=== PATIENT | female | born 1985 | race American Indian/Alaskan Native ===

== ENCOUNTER 2019-09-27 02:06 | Emergency (ER) | payer MEDICAID ==
[2019-09-27 02:16] VITALS: BP 97/69
[2019-09-27 03:06] LABS: Basophils % (Auto) 0.1 % (0.0-1.8); Eosinophils # (Auto) 0.1 K/mm3 (0.0-0.4); Eosinophils % (Auto) 0.7 % (0.0-4.3); Hematocrit 32.7 % (30.3-42.9); Lymphocytes % (Auto) 28.3 % (13.4-35.0); Mean Corpuscular HGB Conc 34 % (30-34); Mean Corpuscular Volume 83 fl (79-97); Monocytes # (Auto) 0.6 K/mm3 (0.0-0.8); Monocytes % (Auto) 5.8 % (0.0-7.3); Platelet Count 351 K/mm3 (140-440); Red Blood Count 3.93 M/mm3 (3.65-5.03); Red Cell Distribution Width 15.4 % (13.2-15.2)
--- NOTE | 2019-09-27 04:13 | Ultrasound Report ---
ULTRASOUND OBSTETRIC INDICATION: vaginal bleeding. Clinical Gestational Age (GA): 17 weeks, 6 days TECHNIQUE: Transabdominal and Transvaginal. COMPARISON: None available. FINDINGS: There is a single intrauterine . Biparietal Diameter = 3.93 cm = 18 weeks, 0 day(s). Head Circumference = 16.49 cm = 19 weeks, 1 day(s). Abdominal Circumference = 13.76 cm = 19 weeks, 1 day(s). Femur Length = 2.5 cm = 17 weeks, 4 day(s). Average Ultrasound Age (AUA) = 18 weeks, 3 day(s). Heart Rate: 152 beats per minute. Position: cephalic. Cervix: closed. Length in cm (if measured): 4 Placenta: anterior and free of the os. Amniotic Fluid Volume: normal Maternal Adnexa: No significant abnormality. IMPRESSION: 1. Single, living intrauterine with estimated sonographic age of 18 weeks, 3 day(s). 2. No significant sonographic abnormality. Signer Name: Abraham Blevins MD Signed: 09/27/2019 4:09 AM Workstation Name: [id number]
[2019-09-27] MEDS ORDERED: ACETAMINOPHEN NICU 32 MG/ML ORAL LIQD PO ONE (05:40)
[2019-09-27] MEDS ORDERED: ACETAMINOPHEN 325 MG/10.15 ML ORAL LIQD UNIT DOSE ONE (05:59)
[2019-09-27] MEDS ORDERED: ACETAMINOPHEN 325 MG/10.15 ML ORAL LIQD UNIT DOSE PO ONE (06:00)
--- NOTE | 2019-09-27 06:26 | Emergency Department Report ---
ED HPI - General Chief complaint: Vaginal Bleeding Stated complaint: 17WKS /BLEEDING Source: patient Mode of arrival: Ambulatory Limitations: No Limitations - History of Present Illness Initial comments: Ms. Serrano is a 33 y/o aaf who presents for vaginal spotting and cramping x 1 day, pt is 17 weeks , with hx of fibroids, G4, p3, A0 all c sections. There is no bleeding at this time, no dysuria frequency or urgency. MD Complaint: abdominal pain, vaginal bleeding Onset/Timin -: days(s) Location: abdomen Radiation: suprapubic Severity: moderate Severity scale (0 -10): 3 Quality: cramping Consistency: intermittent Improves with: none Worsens with: none Associated symptoms: vaginal bleeding, abdominal pain. denies: nausea/vomiting, dysuria, headache, vision changes, malaise, dysparuenia, shortness of breath, syncope, weakness Vaginal bleeding: light :: Yes Number of weeks : 17 OB History - Current : no complications OB History - Previous Pregnancies: no complications, other (C Section ) Last menstrual period: 05/21/19 Pre-stephanie care: followed by OB - Related Data : 4 Para: 3 Ab: 0 Previous Rx's Medication Instructions Recorded Last Taken Type HYDROcodone/APAP 5-325 [[place] 1 each PO Q6HR PRN #16 tablet 01/15/15 Unknown Rx 5/325] Sulfamethoxazole/Trimethoprim 1 each PO Q12H #20 tablet 01/15/15 Unknown Rx [Bactrim Ds] Acetaminophen [Tylenol] 650 mg PO QID PRN #30 capsule 09/27/19 Unknown Rx Allergies Allergy/AdvReac Type Severity Reaction Status Date / Time No Known Allergies Allergy Verified 01/15/15 18:19 ED Review of Systems ROS: Stated complaint: 17WKS /BLEEDING Other details as noted in HPI Constitutional: denies: chills, fever Eyes: denies: eye pain, eye discharge, vision change ENT: denies: ear pain, throat pain Respiratory: denies: cough, shortness of breath, wheezing Cardiovascular: denies: chest pain, palpitations Endocrine: no symptoms reported Gastrointestinal: abdominal pain. denies: nausea, vomiting, diarrhea Genitourinary: as per HPI, abnormal menses, other (vaignal spotting ). denies: dysuria, frequency, hematuria, discharge Musculoskeletal: denies: back pain, joint swelling, arthralgia Skin: denies: rash, lesions Neurological: denies: headache, weakness, paresthesias Psychiatric: denies: anxiety, depression Hematological/Lymphatic: denies: easy bleeding, easy bruising ED Past Medical Hx - Surgical History Additional Surgical History: csection x 3 - Social History Smoking Status: Never Smoker Substance Use Type: None - Medications Home Medications: Home Medications Medication Instructions Recorded Confirmed Last Taken Type HYDROcodone/APAP 5-325 [[place] 1 each PO Q6HR PRN #16 tablet 01/15/15 Unknown Rx 5/325] Sulfamethoxazole/Trimethoprim 1 each PO Q12H #20 tablet 01/15/15 Unknown Rx [Bactrim Ds] Acetaminophen [Tylenol] 650 mg PO QID PRN #30 capsule 09/27/19 Unknown Rx ED Physical Exam - General Limitations: No Limitations General appearance: alert, in no apparent distress - Head Head exam: Present: atraumatic, normocephalic - Eye Eye exam: Present: normal appearance, PERRL, EOMI - ENT ENT exam: Present: mucous membranes moist - Neck Neck exam: Present: normal inspection, full ROM - Respiratory Respiratory exam: Present: normal lung sounds bilaterally. Absent: respiratory distress, wheezes, rales, rhonchi, stridor, chest wall tenderness - Cardiovascular Cardiovascular Exam: Present: regular rate, normal rhythm, normal heart sounds. Absent: systolic murmur, diastolic murmur, rubs, gallop - GI/Abdominal GI/Abdominal exam: Present: soft, normal bowel sounds. Absent: distended, tenderness, guarding, rebound, rigid, bruit, hernia - Rectal Rectal exam: Present: deferred - External exam: Present: other (deferred by patient ) - Extremities Exam Extremities exam: Present: normal inspection, full ROM, normal capillary refill. Absent: tenderness, pedal edema, calf tenderness - Back Exam Back exam: Present: normal inspection, full ROM. Absent: tenderness, CVA tenderness (R), CVA tenderness (L), rash noted - Neurological Exam Neurological exam: Present: alert, oriented X3, CN II-XII intact, normal gait - Psychiatric Psychiatric exam: Present: normal affect, normal mood - Skin Skin exam: Present: warm, dry, intact, normal color. Absent: rash ED Course Vital Signs 09/27/19 02:12 Temperature 98.3 F Pulse Rate 105 H Respiratory 18 Rate Blood Pressure 97/69 O2 Sat by Pulse 100 Oximetry ED Medical Decision Making - Lab Data Result diagrams: 09/27/19 02:28 Labs 09/27/19 09/27/19 09/27/19 02:28 02:28 02:28 WBC 10.8 RBC 3.93 Hgb 11.0 Hct 32.7 MCV 83 MCH 28 MCHC 34 RDW 15.4 H Plt Count 351 Lymph % (Auto) 28.3 [place] % (Auto) 5.8 Eos % (Auto) 0.7 Baso % (Auto) 0.1 Lymph # 3.0 [place] # 0.6 Eos # 0.1 Baso # 0.0 Seg Neutrophils % 65.1 Seg Neutrophils # 7.0 HCG, Quant 9504 H Blood Type A POSITIVE - Radiology Data Radiology results: report reviewed, image reviewed Ordering Physician: ED MD SHANDA Date of Service: 09/27/19 Procedure(s): US transvaginal Accession Number(s): [id number] cc: ED MD SHANDA ULTRASOUND OBSTETRIC INDICATION: vaginal bleeding. Clinical Gestational Age (GA): 17 weeks, 6 days TECHNIQUE: Transabdominal and Transvaginal. COMPARISON: None available. FINDINGS: There is a single intrauterine . Biparietal Diameter = 3.93 cm = 18 weeks, 0 day(s). Head Circumference = 16.49 cm = 19 weeks, 1 day(s). Abdominal Circumference = 13.76 cm = 19 weeks, 1 day(s). Femur Length = 2.5 cm = 17 weeks, 4 day(s). Average Ultrasound Age (AUA) = 18 weeks, 3 day(s). Heart Rate: 152 beats per minute. Position: cephalic. Cervix: closed. Length in cm (if measured): 4 Placenta: anterior and free of the os. Amniotic Fluid Volume: normal Maternal Adnexa: No significant abnormality. IMPRESSION: 1. Single, living intrauterine with estimated sonographic age of 18 weeks, 3 day(s). 2. No significant sonographic abnormality. Signer Name: Abraham Blevins MD Signed: 09/27/2019 4:09 AM Workstation Name: [id number] Transcribed By: MICHAEL Dictated By: Abraham Blevins MD Electronically Authenticated By: Abraham Blevins MD Signed Date/Time: 09/27/19408 DD/ 4 TD/TT: - Medical Decision Making us ob: very viable Single IUP 18 weeks and 3 days FHR 152 bpm, pt advises she must leave now, ua; pending, however there is no vaginal bleeding at this time, pt has confirmed uterine fibroids, h/h is normal, blood type O pos, pt has good obgyn follow up with [facility] will follow up with same in 1-2 days, pt dc'd in stable condition at this time. Critical care attestation.: If time is entered above; I have spent that time in minutes in the direct care of this critically ill patient, excluding procedure time. ED Disposition Clinical Impression: Abdominal pain during in second trimester, Vaginal bleeding before 22 weeks gestation Disposition: DC- TO HOME OR SELFCARE Is pt being admited?: No Does the pt Need Aspirin: No Condition: Stable Instructions: Abdominal Pain in (ED) Prescriptions: Acetaminophen [Tylenol] 650 mg PO QID PRN #30 capsule PRN Reason: pain Referrals: [facility] [Provider Group] - 2-3 Days Forms: Work/School Release Form(ED) Time of Disposition: 06:39
== END 2019-09-27 07:11 | disposition home or self-care (01) ==
LOC: ED 02:06
DX: O26.892 Other specified pregnancy related conditions, second trimester (principal); R10.9 Unspecified abdominal pain; O46.8X2 Other antepartum hemorrhage, second trimester; Z3A.17 17 weeks gestation of pregnancy; Z98.890 Other specified postprocedural states; Z79.899 Other long term (current) drug therapy
CPT/HCPCS: 36415; 76805; 76810; 76817; 76830; 84702; 85025; 86900; 86901

== ENCOUNTER 2019-11-10 22:37 | Emergency (ER) | payer MEDICAID ==
[2019-11-10] MEDS ORDERED: ONDANSETRON 4 MG ODT TAB PO ONE (22:52)
[2019-11-10] MEDS ORDERED: ACETAMINOPHEN 500 MG TAB PO ONE (22:52)
[2019-11-10 23:22] LABS: Hematocrit 30.7 % (30.3-42.9); Mean Corpuscular HGB Conc 33 % (30-34); Mean Corpuscular Volume 81 fl (79-97); Platelet Count 373 K/mm3 (140-440); Red Blood Count 3.78 M/mm3 (3.65-5.03); Red Cell Distribution Width 15.3 % (13.2-15.2)
[2019-11-10 23:43] LABS: Albumin 3.6 g/dL (3.9-5); BUN/Creatinine Ratio 25; Blood Urea Nitrogen 10 mg/dL (7-17); Calcium 9.4 mg/dL (8.4-10.2); Hemolysis Index 4
[2019-11-10 23:57] LABS: Alanine Aminotransferase < 5 units/L (7-56)
[2019-11-11 01:04] LABS: Bilirubin,Urine NEG (Negative); Blood,Urine NEG (Negative); Color,Urine Amber (Yellow); Mucus,Urine 3+ /HPF
[2019-11-11] MEDS ORDERED: SODIUM CHLORIDE 0.9% 1000 ML 1,000 ML IV ONE (01:32)
[2019-11-11] MEDS ORDERED: METOCLOPRAMIDE 10 MG/2 ML INJ IV STA (01:32)
[2019-11-11] MEDS ORDERED: diphenhydrAMINE 50 MG/ML VIAL IV STA (01:32)
--- NOTE | 2019-11-11 01:43 | Emergency Department Report ---
ED Headache HPI - General Chief Complaint: Headache Stated Complaint: SANCHEZ Time Seen by Provider: 11/11/19 01:31 - History of Present Illness Timing/Duration: 24 hours Quality: mild, moderate Head Injury Location: frontal, parietal Recent Head Trauma: no recent headache/trauma Modifying Factors: improves with: cold therapy Associated Symptoms: denies: confusion, fatigue, fever/chills, loss of consciousness, nasal congestion, nasal drainage, seizures, sinus infection, stiff neck, vision changes Allergies/Adverse Reactions: Allergies No Known Allergies Allergy (Verified 01/15/15 18:19) Home Medications: Ambulatory Orders HYDROcodone/APAP 5-325 [[place] 5/325] 1 each PO Q6HR PRN #16 tablet 01/15/15 Sulfamethoxazole/Trimethoprim [Bactrim Ds] 1 each PO Q12H #20 tablet 01/15/15 Acetaminophen [Tylenol] 650 mg PO QID PRN #30 capsule 09/27/19 ED Review of Systems ROS: Stated complaint: SANCHEZ Other details as noted in HPI Comment: All other systems reviewed and negative ED Past Medical Hx - Past Medical History Previous Medical History?: No - Surgical History Past Surgical History?: Yes Additional Surgical History: csection x 3 - Social History Smoking Status: Never Smoker Substance Use Type: None - Medications Home Medications: Home Medications Medication Instructions Recorded Confirmed Last Taken Type HYDROcodone/APAP 5-325 [[place] 1 each PO Q6HR PRN #16 tablet 01/15/15 Unknown Rx 5/325] Sulfamethoxazole/Trimethoprim 1 each PO Q12H #20 tablet 01/15/15 Unknown Rx [Bactrim Ds] Acetaminophen [Tylenol] 650 mg PO QID PRN #30 capsule 09/27/19 Unknown Rx ED Physical Exam - General Limitations: No Limitations General appearance: alert, in no apparent distress - Head Head exam: Present: atraumatic, normocephalic - Eye Eye exam: Present: normal appearance, PERRL, EOMI. Absent: scleral icterus, conjunctival injection, nystagmus (neg fundus exam) Pupils: Present: normal accommodation - ENT ENT exam: Present: normal exam, normal orophraynx, mucous membranes moist, TM's normal bilaterally - Neck Neck exam: Present: normal inspection, full ROM - Respiratory Respiratory exam: Present: normal lung sounds bilaterally. Absent: respiratory distress - Cardiovascular Cardiovascular Exam: Present: regular rate, normal rhythm. Absent: systolic murmur, diastolic murmur, rubs, gallop - GI/Abdominal GI/Abdominal exam: Present: soft, normal bowel sounds. Absent: tenderness, guarding, hyperactive bowel sounds, hypoactive bowel sounds, organomegaly - Extremities Exam Extremities exam: Present: normal inspection - Back Exam Back exam: Present: normal inspection - Neurological Exam Neurological exam: Present: alert, oriented X3, CN II-XII intact, normal gait - Psychiatric Psychiatric exam: Present: normal affect, normal mood - Skin Skin exam: Present: warm, dry, intact, normal color. Absent: rash ED Course Vital Signs 11/10/19 11/11/19 22:49 00:05 Temperature 98.9 F Pulse Rate 99 H Respiratory 18 16 Rate Blood Pressure 93/65 O2 Sat by Pulse 100 Oximetry ED Medical Decision Making - Lab Data Result diagrams: 11/10/19 23:02 11/10/19 23:02 - Medical Decision Making This patient presents with a headache most consistent with migraine. Differential diagnosis includes migraine versus tension type headache. No headache red flags. Neurologic exam without evidence of meningismus, focal neurologic findings. Presentation not consistent with acute intracranial bleed to include SAH (lack of risk factors, headache history). Presentation not consistent with acute [employer] [place] infection to include meningitis or brain abscess, Temporal arteritis unlikely, as is acute angle closure glaucoma given history and physical findings. Presentation not consistent with other acute, emergent causes of headache at this time. Plan to treat symptomatically with pain medica tion. No indication for imaging/LP at this time. Symptoms have resolved includes Reglan and Benadryl the patient also responded well to Tylenol. Spies patient importance of following up with an [facility] Plan: pain medication, serial reassessment Critical care attestation.: If time is entered above; I have spent that time in minutes in the direct care of this critically ill patient, excluding procedure time. ED Disposition Clinical Impression: Cephalgia Disposition: -01 TO HOME OR SELFCARE Is pt being admited?: No Does the pt Need Aspirin: No Condition: Stable Instructions: Acute Headache (ED) Referrals: PRIMARY CARE, [Primary Care Provider] - 3-5 Days
[2019-11-11 04:04] VITALS: BP 110/64
== END 2019-11-11 04:05 | disposition home or self-care (01) ==
LOC: ED 22:37
DX: R51 Headache (principal); Z98.890 Other specified postprocedural states; Z79.899 Other long term (current) drug therapy
CPT/HCPCS: 36415; 80053; 81001; 85027; 87086; 96374; 96375; 99283; J1200; J2765; J7030; Q0162

== ENCOUNTER 2020-01-25 00:38 | Observation (INO) | payer MEDICAID ==
[2020-01-25] MEDS ORDERED: LACTATED RINGERS 1,000 ML IV ONE (01:07)
[2020-01-25] MEDS ORDERED: metroNIDAZOLE 500 MG TAB PO ONE (02:10)
[2020-01-25 02:15] LABS: Bacteria,Urine 2+ /HPF (Negative); Bilirubin,Urine NEG (Negative); Blood,Urine SM (Negative); Color,Urine Yellow (Yellow); Protein,Urine <15 mg/dL mg/dL (Negative)
[2020-01-25] MEDS ORDERED: TERBUTALINE 1 MG/1 ML INJ SUB-Q ONE ×2 (02:27→05:42)
[2020-01-25] MEDS ORDERED: TERBUTALINE 1 MG/1 ML INJ ONE ×2 (02:30→07:49)
[2020-01-25 04:38] LABS: Bilirubin,Urine NEG (Negative); Blood,Urine NEG (Negative); Color,Urine Yellow (Yellow); Hyaline Casts,Urine 1 /LPF; Mucus,Urine FEW /HPF; Protein,Urine <15 mg/dL mg/dL (Negative)
[2020-01-25 04:53] LABS: Amphetamine Screen,Urine PRESUMPTIVE NEGATIVE; Benzodiazepines Screen,Urine PRESUMPTIVE NEGATIVE; Cannabinoid Screen,Urine PRESUMPTIVE NEGATIVE; Cocaine Screen,Urine PRESUMPTIVE NEGATIVE; Methadone Screen,Urine PRESUMPTIVE NEGATIVE; Opiate Screen,Urine PRESUMPTIVE NEGATIVE
[2020-01-25] MEDS ORDERED: ACETAMINOPHEN 325 MG TAB PO PRN (06:17)
[2020-01-25] MEDS ORDERED: DOCUSATE SODIUM 100 MG CAP PO PRN (06:17)
--- NOTE | 2020-01-25 06:26 | History and Physical Report ---
History of Present Illness Date of examination: 01/25/20 Date of admission: 01/25/2020 Chief complaint: Contractions History of present illness: 34 year old female presents with complaint of irregular contractions for past day. Patient denies vaginal bleeding or leaking of fluid. Patient reports active movement. Patient receives care at [facility] and records are available. LMP 05/23/2019. EDC 02/27/2020. significant for the following: AMA, anemia (supplemented with iron), anterior fibroid, history of section times 3, LGA, marginal placenta previa (resolved), overweight, trichomonas and mycoplasma, elevated 1 hour sugar test. labs are as follows: A+, antibody screen negative, rubella immune, pap smear negative, hepatitis B surface antigen negative, HIV negative, RPR nonreactive, gonorrhea negative, chlamydia negative, trichomonas positive (JOHNNY positive), AFP negative, 1 hour sugar test 160, 3 hour OGTT WNL (78, 157, 149, 136), GBS negative, hemoglobin electrophoresis AA. Past History Past Medical History: no pertinent history Past Surgical History: section (times 3), other (EAB times 1) [employer] History: fibroids, trichomonas (treated during and treated again upon admission today). denies: chlamydia, gonorrhea, hepatitis B, HIV Family/Genetic History: diabetes, other (asthma) Social history: single, full code. denies: smoking, alcohol abuse, prescription drug abuse, IV drug use - Obstetrical History Expected Date of Delivery: 02/27/20 Actual Gestation: 35 Week(s) 2 Day(s) : 5 Para: 3 Hx # Term Pregnancies: 3 Number of Pregnancies: 0 Spontaneous Abortions: 0 Induced : 1 Number of Living Children: 3 Medications and Allergies Allergies Allergy/AdvReac Type Severity Reaction Status Date / Time No Known Allergies Allergy Verified 01/15/15 18:19 Home Medications Medication Instructions Recorded Confirmed Last Taken Type HYDROcodone/APAP 5-325 [[place] 1 each PO Q6HR PRN #16 tablet 01/15/15 Unknown Rx 5/325] Sulfamethoxazole/Trimethoprim 1 each PO Q12H #20 tablet 01/15/15 Unknown Rx [Bactrim Ds] Acetaminophen [Tylenol] 650 mg PO QID PRN #30 capsule 09/27/19 Unknown Rx Review of Systems All systems: negative (contractions) - Vital Signs Vital signs: Vital Signs Pulse BP 103 H 108/75 01/25/20 00:54 01/25/20 00:54 Temp Pulse Resp BP Pulse Ox 98.3 F 105 H 16 108/75 99 01/25/20 00:56 01/25/20 06:18 01/25/20 00:56 01/25/20 00:56 01/25/20 06:18 - Physical Exam Abdomen: Positive: normal appearance, soft. Negative: distention, tenderness, guarding, rigidity Genitourinary (Female): Positive: normal external genitalia, normal perenium. Negative: perineal/vulvar lesions (no lesions noted) Vagina: Positive: normal moisture Uterus: Positive: enlarged (S=D) Anus/Rectum: Positive: normal perianal skin Extremities: Positive: normal. Negative: tenderness, edema - Obstetrical FHR: category 1 Cervical Dilatation: 0 Cervical Effacement Percentage: 50 station: OOP Uterine Contraction Pattern: Irregular Uterine Contraction Intensity: Mild Results Abnormal lab results 01/25/20 Range/Units 01:10 Urine WBC (Auto) 29.0 H (0.0-6.0) /HPF All other labs normal. Assessment and Plan A: at 35 2/7 weeks gestation. contractions without cervical change. GBS negative. Previous section times 3. P: Admit for 23 hour observation. Continuous EFM. IV hydration. SQ [place]. Urine culture pending. Consulted with Dr. Shepherd re: this patient and her contractions and history of [address] Shepherd states to admit patient for 23 hour observation. No other orders received from .
[2020-01-25] MEDS ORDERED: LACTATED RINGERS 1,000 ML IV SCH (07:00)
[2020-01-25 08:26] LABS: Basophils % (Auto) 0.4 % (0.0-1.8); Eosinophils % (Auto) 0.2 % (0.0-4.3); Hematocrit 25.3 % (30.3-42.9); Hemoglobin 7.9 gm/dl (10.1-14.3); Lymphocytes # (Auto) 2.3 K/mm3 (1.2-5.4); Lymphocytes % (Auto) 18.9 % (13.4-35.0); Mean Corpuscular HGB Conc 31 % (30-34); Mean Corpuscular Volume 71 fl (79-97); Monocytes # (Auto) 0.5 K/mm3 (0.0-0.8); Platelet Count 327 K/mm3 (140-440); Red Blood Count 3.56 M/mm3 (3.65-5.03); Red Cell Distribution Width 18.1 % (13.2-15.2)
[2020-01-25] MEDS ORDERED: DOCUSATE SODIUM 100 MG CAP PO SCH (10:00)
[2020-01-25] MEDS ORDERED: PRENATAL VIT27-FE FUMARATE-FOLIC ACID VIT TAB PO SCH (10:00)
[2020-01-25] MEDS ORDERED: FERROUS SULFATE 325 MG TAB PO SCH (10:00)
[2020-01-25 12:20] VITALS: BP 103/59
--- NOTE | 2020-01-25 14:25 | Event Note ---
Date: 01/25/20 Patient's contractions have stopped and she denies pain. Category 1 heart rate tracing. No leaking of fluid. No vaginal bleeding. Active movement. Anemia: 7.9 hgb and 25.3 hct. Patient's pulse 102-115 bpm. Patient is asymptomatic. Consulted with Dr. Gerard re: this patient and he states to discharge patient home on iron TID. Discussed with patient discharge instructions and warning signs. Advised patient to continue taking her vitamin daily. Advised patient to take iron supplement TID. Advised patient to rest at home and to avoid intercourse and housework and lifting. Advised patient to count movements daily and return if any decrease in movements. Signs of labor discussed with patient. Advised patient to follow up at [facility] tomorrow for follow up. Patient voiced understanding of instructions.
--- NOTE | 2020-01-25 14:43 | Discharge Summary ---
Providers - Providers Date of Admission: 01/25/20 07:22 Date of discharge: 01/25/20 Attending physician: WILBERTO MYERS MD Primary care physician: WILBERTO MYERS MD Hospitalization Reason for admission: other ( contractions) Delivery: other (Undelivered) Discharge diagnosis: other (Undelivered late ) Pertinent studies: Labs Hospital course: Normal hospital course Condition at discharge: Good Disposition: DC-01 TO HOME OR SELFCARE - Discharge Diagnoses (1) contractions Status: Acute Plan - Provider Discharge Summary Activity: routine Diet: routine Instructions: routine Additional instructions: Please take your vitamin daily. Please take your iron supplement every 8hours at home. Call your doctor immediately for: Return if signs of labor, leaking of water, vaginal bleeding, abdominal pain, or decreased movement. Count movements daily. - Follow up plan Follow up: WILBERTO MYERS MD [Primary Care Provider] - 48 Hours
== END 2020-01-25 15:37 | disposition home or self-care (01) ==
LOC: TRG 00:38 → LD 07:22
PROVIDERS: ADMIT Obstetrics & Gynecology; ATTEND Obstetrics & Gynecology
DX: O62.9 Abnormality of forces of labor, unspecified (principal); Z3A.37 37 weeks gestation of pregnancy; Z98.891 History of uterine scar from previous surgery; Z79.899 Other long term (current) drug therapy
CPT/HCPCS: 36415; 80307; 81001; 85025; 87086; 96372; G0378; J3105; J7120

== ENCOUNTER 2020-02-05 19:36 | Observation (INO) | payer MEDICAID ==
[2020-02-06 01:02] LABS: Bilirubin,Urine NEG (Negative); Blood,Urine LG (Negative); Color,Urine Yellow (Yellow); Mucus,Urine 2+ /HPF
[2020-02-06 01:03] LABS: RBC,Urine > 182.0 /HPF (0.0-6.0)
[2020-02-06 01:04] LABS: WBC,Urine > 182.0 /HPF (0.0-6.0)
[2020-02-06] MEDS: LACTATED RINGERS 1,000 ML IV SCH ×2 (03:45→08:40)
[2020-02-06] MEDS ORDERED: BUTORPHANOL 2 MG/1 ML INJ IV ONE (05:28)
[2020-02-06 06:25] LABS: Basophils % (Auto) 0.1 % (0.0-1.8); Eosinophils # (Auto) 0.3 K/mm3 (0.0-0.4); Eosinophils % (Auto) 2.6 % (0.0-4.3); Hematocrit 24.6 % (30.3-42.9); Hemoglobin 7.6 gm/dl (10.1-14.3); Lymphocytes # (Auto) 2.8 K/mm3 (1.2-5.4); Lymphocytes % (Auto) 22.1 % (13.4-35.0); Mean Corpuscular HGB Conc 31 % (30-34); Monocytes # (Auto) 0.6 K/mm3 (0.0-0.8); Monocytes % (Auto) 4.7 % (0.0-7.3); Platelet Count 324 K/mm3 (140-440); Red Blood Count 3.54 M/mm3 (3.65-5.03); Red Cell Distribution Width 18.4 % (13.2-15.2)
[2020-02-06 06:27] LABS: Mean Corpuscular Volume 70 fl (79-97)
[2020-02-06 11:58] VITALS: BP 113/70
--- NOTE | 2020-02-06 12:29 | Ultrasound Report ---
ULTRASOUND OBSTETRIC LIMITED ULTRASOUND BIOPHYSICAL PROFILE INDICATION / CLINICAL INFORMATION: Evaluate biophysical profile and amniotic fluid index. COMPARISON: OB ultrasound from 09/27/2019. FINDINGS: BREATHING MOVEMENT = 2 GROSS BODY MOVEMENT = 2 TONE = 2 QUALITATIVE AMNIOTIC FLUID VOLUME = 2 TOTAL BIOPHYSICAL SCORE = 8/8 AMNIOTIC FLUID INDEX (cm) = 16.6 PRESENTATION: Cephalic. HEART RATE (beats per minute): 137 ADDITIONAL FINDINGS: None. IMPRESSION: 1. Biophysical Score = 8/8 2. Amniotic fluid index of 16.6 cm. Signer Name: Abraham Blevins MD Signed: 02/06/2020 12:24 PM Workstation Name: [id number]
== END 2020-02-06 13:00 | disposition home or self-care (01) ==
LOC: TRG 19:36 → APU 19:36 → TRG 02-06 04:16 → LD 02-06 04:17 → INTOOBSV 02-06 04:17
PROVIDERS: ADMIT Obstetrics & Gynecology; ATTEND Obstetrics & Gynecology
DX: O62.9 Abnormality of forces of labor, unspecified (principal); O34.219 Maternal care for unspecified type scar from previous cesarean delivery; O09.523 Supervision of elderly multigravida, third trimester; Z3A.37 37 weeks gestation of pregnancy
CPT/HCPCS: 36415; 76815; 76819; 81001; 85025; 86592; 86850; 86900; 86901; 96374; G0378; J0595; J7120

== ENCOUNTER 2021-01-01 23:05 | Emergency (ER) | payer SELFPAY ==
[2021-01-01 23:31] VITALS: BP 110/77
--- NOTE | 2021-01-02 00:13 | Emergency Department Report ---
ED Female HPI - General Chief complaint: Vaginal Bleeding Stated complaint: VAGINAL BLEEDING;LIGHTHEADED Time Seen by Provider: 01/01/21 23:59 Source: patient Mode of arrival: Ambulatory Limitations: No Limitations - History of Present Illness Complaint: vaginal bleeding -: Gradual Location: suprapubic Radiation: non-radiating Severity: mild Are you Now?: No Associated Symptoms: vaginal bleeding - Related Data Sexually active: No Home Medications Medication Instructions Recorded Confirmed Last Taken Ferrous Sulfate [Feosol 325 MG tab] 1 mg PO DAILY 02/06/20 02/16/20 02/05/20 10:00 Pnv No.121/Iron/Folic Acid 1 tab PO DAILY 02/06/20 02/16/20 02/05/20 10:00 [ Multivitamin Tablet] Previous Rx's Medication Instructions Recorded Last Taken Type Ibuprofen [Motrin] 600 mg PO Q8H PRN #60 tablet 02/15/20 Unknown Rx oxyCODONE /ACETAMINOPHEN [Percocet 1 tab PO Q6HR PRN #20 tablet 02/15/20 Unknown Rx 5/325] medroxyPROGESTERone ACETATE 10 mg PO QDAY #10 tablet 01/02/21 Unknown Rx [Provera] Allergies Allergy/AdvReac Type Severity Reaction Status Date / Time No Known Allergies Allergy Verified 02/06/20 06:38 ED Review of Systems ROS: Stated complaint: VAGINAL BLEEDING;LIGHTHEADED Other details as noted in HPI Comment: All other systems reviewed and negative ED Past Medical Hx - Past Medical History Previous Medical History?: Yes Hx Hypertension: No Hx Heart Attack/AMI: No Hx Congestive Heart Failure: No Hx Diabetes: No Hx Deep Vein Thrombosis: No Hx Liver Disease: No Hx Renal Disease: No Hx Sickle Cell Disease: No Hx Seizures: No Hx Asthma: No Hx COPD: No Hx HIV: No Additional medical history: Uterine Fibroids. Anemia - Surgical History Past Surgical History?: Yes Hx Pacemaker: No Hx Internal Defibrillator: No Additional Surgical History: csection x 3 - Social History Smoking Status: Never Smoker Substance Use Type: None - Medications Home Medications: Home Medications Medication Instructions Recorded Confirmed Last Taken Type Ferrous Sulfate [Feosol 325 MG tab] 1 mg PO DAILY 02/06/20 02/16/20 02/05/20 10:00 History Pnv No.121/Iron/Folic Acid 1 tab PO DAILY 0402/16/20 02/05/20 10:00 History [ Multivitamin Tablet] Ibuprofen [Motrin] 600 mg PO Q8H PRN #60 tablet 02/15/20 Unknown Rx oxyCODONE /ACETAMINOPHEN [Percocet 1 tab PO Q6HR PRN #20 tablet 02/15/20 Unknown Rx 5/325] medroxyPROGESTERone ACETATE 10 mg PO QDAY #10 tablet 01/02/21 Unknown Rx [Provera] ED Physical Exam - General Limitations: No Limitations General appearance: alert, in no apparent distress - Head Head exam: Present: atraumatic, normocephalic - Eye Eye exam: Present: normal appearance, PERRL Pupils: Present: normal accommodation - ENT ENT exam: Present: normal exam, mucous membranes moist - Neck Neck exam: Present: normal inspection, full ROM - Respiratory Respiratory exam: Present: normal lung sounds bilaterally. Absent: respiratory distress - Cardiovascular Cardiovascular Exam: Present: regular rate, normal rhythm. Absent: systolic murmur, diastolic murmur, rubs, gallop - GI/Abdominal GI/Abdominal exam: Present: soft, tenderness (Tenderness to the suprapubic region with palpation. No CVA tenderness is noted.), normal bowel sounds - Extremities Exam Extremities exam: Present: normal inspection - Back Exam Back exam: Present: normal inspection - Neurological Exam Neurological exam: Present: alert, oriented X3 - Psychiatric Psychiatric exam: Present: normal affect, normal mood - Skin Skin exam: Present: warm, dry, intact, normal color. Absent: rash ED Course Vital Signs 01/01/21 23:25 Temperature 98.6 F Pulse Rate 80 Respiratory 18 Rate Blood Pressure 110/77 O2 Sat by Pulse 99 Oximetry ED Medical Decision Making - Lab Data Result diagrams: 01/01/21 23:57 - Radiology Data Radiology results: report reviewed [address] [place] [id number] Ultrasound Report Signed Patient: LUIS ENRIQUE WASHINGTON MR#: [id number] : 1985 Acct:[id number] Age/Sex: 35 / F ADM Date: 01/01/21 Loc: ED Attending Dr: Ordering Physician: PATRIZIA EATON Date of Service: 01/02/21 Procedure(s): US pelvic complete Accession Number(s): [id number] cc: PATRIZIA EATON ULTRASOUND PELVIS INDICATION: pelvic pain and menorrhagia. TECHNIQUE: Transabdominal. Duplex Color Doppler used: No. COMPARISON: None available FINDINGS: Uterus: Present. Size: 10.7 x 4.6 x 6.2 cm. Endometrial complex: Normal measuring 5 mm. Mass lesions: None. Additional findings: None. Right Ovary -- Normal. Blood flow: Normal. Cyst or mass: None. Left Ovary-- Normal. Blood flow: Normal. Cyst or mass: None. Urinary Bladder: Normal. Free Fluid: None. Additional Findings: None. IMPRESSION: 1. No acute sonographic abnormality of the pelvis. Signer Name: Kwasi Garcia MD Signed: 01/02/2021 3:21 AM Workstation Name: [id number] Transcribed By: KRISTAL Dictated By: Kwasi Garcia MD Electronically Authenticated By: Kwasi Garcia MD Signed Date/Time: 01/02/21320 DD/ 9 TD/TT: Print - Medical Decision Making Female presents emergency department with over [week] days of episodic vaginal bleeding most likely of a nonemergent etiology. Based on the history, examination, the ED work-up patient's presentation not consistent with an ectopic , molar , life threatening coagulopathy, serious bacterial infection, central process or other emergency. Patient's bleeding is most likely secondary to, fibroids, or the nonemergent cause of abnormal uterine bleeding. No vaginal tears were appreciated on examination Disposition: We will discharge home with return precautions and instructions for prompt GRADER OPERATOR follow-up Critical care attestation.: If time is entered above; I have spent that time in minutes in the direct care of this critically ill patient, excluding procedure time. ED Disposition Clinical Impression: Menorrhagia, DUB (dysfunctional uterine bleeding), Anemia Disposition: - TO HOME OR SELFCARE Is pt being admited?: No Does the pt Need Aspirin: No Condition: Stable Instructions: Metrorrhagia, [id number], Dysfunctional Uterine Bleeding Prescriptions: medroxyPROGESTERone ACETATE [Provera] 10 mg PO QDAY #10 tablet Referrals: PRIMARY CAREMD [Primary Care Provider] - 3-5 Days [facility] [Provider Group] - 3-5 Days
[2021-01-02 00:35] LABS: Bilirubin,Urine NEG (Negative); Blood,Urine LG (Negative); Color,Urine Yellow (Yellow); Mucus,Urine 3+ /HPF
[2021-01-02 00:39] LABS: RBC,Urine > 182.0 /HPF (0.0-6.0)
[2021-01-02 00:42] LABS: Basophils % (Auto) 0.1 % (0.0-1.8); Eosinophils # (Auto) 0.1 K/mm3 (0.0-0.4); Eosinophils % (Auto) 0.6 % (0.0-4.3); Hematocrit 29.7 % (30.3-42.9); Hemoglobin 9.6 gm/dl (10.1-14.3); Lymphocytes # (Auto) 4.5 K/mm3 (1.2-5.4); Mean Corpuscular HGB Conc 32 % (30-34); Mean Corpuscular Volume 75 fl (79-97); Monocytes # (Auto) 0.5 K/mm3 (0.0-0.8); Monocytes % (Auto) 5.1 % (0.0-7.3); Platelet Count 347 K/mm3 (140-440); Red Blood Count 3.94 M/mm3 (3.65-5.03); Red Cell Distribution Width 17.6 % (13.2-15.2)
--- NOTE | 2021-01-02 03:25 | Ultrasound Report ---
ULTRASOUND PELVIS INDICATION: pelvic pain and menorrhagia. TECHNIQUE: Transabdominal. Duplex Color Doppler used: No. COMPARISON: None available FINDINGS: Uterus: Present. Size: 10.7 x 4.6 x 6.2 cm. Endometrial complex: Normal measuring 5 mm. Mass lesions: None. Additional findings: None. Right Ovary -- Normal. Blood flow: Normal. Cyst or mass: None. Left Ovary-- Normal. Blood flow: Normal. Cyst or mass: None. Urinary Bladder: Normal. Free Fluid: None. Additional Findings: None. IMPRESSION: 1. No acute sonographic abnormality of the pelvis. Signer Name: Kwasi Garcai MD Signed: 01/02/2021 3:21 AM Workstation Name: [id number]
== END 2021-01-02 04:06 | disposition home or self-care (01) ==
LOC: ED 23:05
DX: N92.0 Excessive and frequent menstruation with regular cycle (principal); N93.8 Other specified abnormal uterine and vaginal bleeding; D64.9 Anemia, unspecified; Z79.899 Other long term (current) drug therapy
CPT/HCPCS: 36415; 76856; 81001; 84702; 85025; 86900; 86901

== ENCOUNTER 2022-05-19 10:29 | Emergency (ER) | payer MEDICAID ==
--- NOTE | 2022-05-19 11:37 | Emergency Department Report ---
ED Female HPI - General Chief complaint: Urogenital-Female Stated complaint: BLOOD CLOTS Time Seen by Provider: 05/19/22 11:36 Source: patient Mode of arrival: Ambulatory Limitations: No Limitations - History of Present Illness Initial comments: Patient is a 36-year-old female that comes to the emergency room with heavy 2 weeks of menses. She sees [facility] but they could not see her. She thinks that this is because of her Depo injection. She is asking for pain medicines other than Motrin or Tylenol. Patient denies dysuria or vaginal discharge. Denies fever or chills. MD Complaint: vaginal bleeding -: Gradual, days(s) Are you Now?: No Associated Symptoms: denies other symptoms, vaginal bleeding. denies: vaginal discharge, nausea/vomiting, fever/chills - Related Data Sexually active: Yes Home Medications Medication Instructions Recorded Confirmed Last Taken Ferrous Sulfate [Feosol 325 MG tab] 1 mg PO DAILY 02/06/20 02/16/20 02/05/20 10:00 Pnv No.121/Iron/Folic Acid 1 tab PO DAILY 02/06/20 02/16/20 02/05/20 10:00 [ Multivitamin Tablet] Previous Rx's Medication Instructions Recorded Last Taken Type Ibuprofen [Motrin] 600 mg PO Q8H PRN #60 tablet 02/15/20 Unknown Rx oxyCODONE /ACETAMINOPHEN [Percocet 1 tab PO Q6HR PRN #20 tablet 02/15/20 Unknown Rx 5/325] medroxyPROGESTERone ACETATE 10 mg PO QDAY #10 tablet 01/02/21 Unknown Rx [Provera] Allergies Allergy/AdvReac Type Severity Reaction Status Date / Time No Known Allergies Allergy Verified 05/19/22 11:06 ED Review of Systems ROS: Stated complaint: BLOOD CLOTS Other details as noted in HPI Comment: All other systems reviewed and negative ED Past Medical Hx - Past Medical History Previous Medical History?: Yes Hx Hypertension: No Hx Heart Attack/AMI: No Hx Congestive Heart Failure: No Hx Diabetes: No Hx Deep Vein Thrombosis: No Hx Liver Disease: No Hx Renal Disease: No Hx Sickle Cell Disease: No Hx Seizures: No Hx Asthma: No Hx COPD: No Hx HIV: No Additional medical history: Uterine Fibroids. Anemia - Surgical History Past Surgical History?: Yes Hx Pacemaker: No Hx Internal Defibrillator: No Additional Surgical History: csection x 3 - Family History Family history: no significant - Social History Smoking Status: Never Smoker Substance Use Type: None - Medications Home Medications: Home Medications Medication Instructions Recorded Confirmed Last Taken Type Ferrous Sulfate [Feosol 325 MG tab] 1 mg PO DAILY 02/06/20 02/16/20 02/05/20 10:00 History Pnv No.121/Iron/Folic Acid 1 tab PO DAILY 02/06/20 02/16/20 02/05/20 10:00 History [ Multivitamin Tablet] Ibuprofen [Motrin] 600 mg PO Q8H PRN #60 tablet 02/15/20 Unknown Rx oxyCODONE /ACETAMINOPHEN [Percocet 1 tab PO Q6HR PRN #20 tablet 02/15/20 Unknown Rx 5/325] medroxyPROGESTERone ACETATE 10 mg PO QDAY #10 tablet 01/02/21 Unknown Rx [Provera] ED Physical Exam - General Limitations: No Limitations General appearance: alert, in no apparent distress - Head Head exam: Present: atraumatic, normocephalic - Eye Eye exam: Present: normal appearance - ENT ENT exam: Present: mucous membranes moist - Neck Neck exam: Present: normal inspection - Respiratory Respiratory exam: Present: normal lung sounds bilaterally. Absent: respiratory distress - Cardiovascular Cardiovascular Exam: Present: regular rate, normal rhythm, other (Heart rate 80 on exam). Absent: systolic murmur, diastolic murmur, rubs, gallop - GI/Abdominal GI/Abdominal exam: Present: soft, normal bowel sounds - Extremities Exam Extremities exam: Present: normal inspection - Back Exam Back exam: Present: normal inspection - Neurological Exam Neurological exam: Present: alert, oriented X3 - Psychiatric Psychiatric exam: Present: normal affect, normal mood - Skin Skin exam: Present: warm, dry, intact, normal color. Absent: rash ED Course Vital Signs 05/19/22 11:01 Temperature 98.1 F Pulse Rate 114 H Respiratory 18 Rate Blood Pressure 128/76 [Left] O2 Sat by Pulse 100 Oximetry ED Medical Decision Making - Lab Data Result diagrams: 05/19/22 11:58 05/19/22 11:58 - Medical Decision Making Labs 05/19/22 05/19/22 05/19/22 11:58 11:58 11:58 WBC 6.4 RBC 3.96 Hgb 10.3 Hct 31.7 MCV 80 MCH 26 L MCHC 33 RDW 18.1 H Plt Count 335 Sodium 142 Potassium 4.1 Chloride 106.6 Carbon Dioxide 25 Anion Gap 15 BUN 7 Creatinine 0.4 L Estimated GFR > 60 BUN/Creatinine Ratio 18 Glucose 92 Calcium 9.2 HCG, Quant < 2 Quant is negative for . Hemoglobin is 10.3. Patient has no chest pain or shortness of breath. Patient denies any vaginal discharge. She has no back pain. She is complaining of abdominal cramping such as with menses. She has an DIRECTOR OF CONSERVATION. Patient being discharged home with discharge plan of care including diet, activity, medications and follow-up. On discharge she is asking for narcotic prescriptions for her menstrual cramps. I have told her that the emergency room does not give narcotics that she need to see her DIRECTOR OF CONSERVATION. Patient verbalizes understanding of plan of care. Vital Signs 05/19/22 11:01 Temperature 98.1 F Pulse Rate 114 H Respiratory 18 Rate Blood Pressure 128/76 [Left] O2 Sat by Pulse 100 Oximetry Heart rate 88 on discharge - Differential Diagnosis Acute on chronic fibroids, heavy menses rule out symptomatic anemia Critical care attestation.: If time is entered above; I have spent that time in minutes in the direct care of this critically ill patient, excluding procedure time. ED Disposition Clinical Impression: Heavy menses, History of uterine fibroid Disposition: HOME / SELF CARE / HOMELESS Is pt being admited?: No Does the pt Need Aspirin: No Condition: Stable Instructions: Abnormal Uterine Bleeding Additional Instructions: Diet and activity as tolerated [id number] Motrin 800 mg and Tylenol 1000 mg for pain Stay well-hydrated Follow-up with DIRECTOR OF CONSERVATION as we discussed Referrals: TEODORO AGUILLON MD [Staff Physician] - 3-5 Days Forms: Work/School Release Form(ED) Time of Disposition: 14:07
[2022-05-19 13:14] LABS: Blood Urea Nitrogen 7 mg/dL (7-17); Calcium 9.2 mg/dL (8.4-10.2); Hemolysis Index 0
[2022-05-19 13:25] LABS: BUN/Creatinine Ratio 18
[2022-05-19 13:32] LABS: Hematocrit 31.7 % (30.3-42.9); Hemoglobin 10.3 gm/dl (10.1-14.3); Mean Corpuscular HGB Conc 33 % (30-34); Mean Corpuscular Volume 80 fl (79-97); Platelet Count 335 K/mm3 (140-440); Red Blood Count 3.96 M/mm3 (3.65-5.03); Red Cell Distribution Width 18.1 % (13.2-15.2)
[2022-05-19 14:34] LABS: Color,Urine Red (Yellow)
[2022-05-19 14:35] LABS: Bilirubin,Urine Color Interference (Negative); Blood,Urine Color Interference (Negative); Protein,Urine Color Interference mg/dL (Negative); RBC,Urine > 182.0 /HPF (0.0-6.0)
[2022-05-19 14:36] LABS: Mucus,Urine Rare /HPF
[2022-05-19 15:16] VITALS: BP 133/77
== END 2022-05-19 14:54 | disposition home or self-care (01) ==
LOC: ED 10:29
DX: N92.0 Excessive and frequent menstruation with regular cycle (principal); D25.9 Leiomyoma of uterus, unspecified; Z79.899 Other long term (current) drug therapy
CPT/HCPCS: 36415; 80048; 81001; 84702; 85027; 99283